=== PATIENT | female | born 1970 | race Caucasian/White ===

== ENCOUNTER 2019-08-08 20:28 | Emergency (ER) | payer MEDICAID ==
[~2019-08-08] VITALS: Ht 162.6 cm; Wt 55.0 kg
[2019-08-08 20:34] VITALS: BP 110/65
[2019-08-08] MEDS ORDERED: LIDOCAINE 1%-EPI 1:100K, 20ML SQ ONE (21:00)
[2019-08-08] MEDS ORDERED: LIDOCAINE 1%-EPI 1:100K, 20ML ONE (21:07)
--- NOTE | 2019-08-08 21:20 | NUR ---
xr neg. pa to go in to suture. at bedside. report to pipo corona. as
== END 2019-08-08 21:43 | disposition home or self-care (01) ==
LOC: ED 21:15
DX: S61.411A Laceration without foreign body of right hand, initial encounter (principal); F17.200 Nicotine dependence, unspecified, uncomplicated; X58.XXXA Exposure to other specified factors, initial encounter; Y93.89 Activity, other specified; Y92.009 Unspecified place in unspecified non-institutional (private) residence as the place of occurrence of the external cause; Y99.8 Other external cause status
CPT/HCPCS: 12041

== ENCOUNTER 2019-10-31 17:32 | Emergency (ER) | payer MEDICAID ==
[~2019-10-31] VITALS: Ht 162.6 cm; Wt 57.8 kg
[2019-10-31 17:33] VITALS: BP 92/67
== END 2019-10-31 18:48 | disposition home or self-care (01) ==
LOC: ED 18:16
DX: B86 Scabies (principal); F17.200 Nicotine dependence, unspecified, uncomplicated
CPT/HCPCS: 99283; Q0177